=== PATIENT | female | born 1955 | race Caucasian/White ===

== ENCOUNTER 2016-07-15 10:59 | Outpatient (CLI) | payer OTHER ==
[2016-07-15 11:51] LABS: Hemoglobin 14.9 g/dL (12.0-16.0); Mean Corpuscular HGB CONC 33.9 g/dL (32.0-36.0); Mean Corpuscular Volume 91.7 fl (81.0-99.0); Mean Platelet Volume 7.3 fL (7.4-10.4); Platelet Count 245 thou/uL (130-400); RBC Distribution Width 12.5 % (11.5-14.5); Red Blood Cell (RBC) Count 4.81 mill/uL (4.20-5.40)
[2016-07-15 15:03] LABS: ALT (SGPT) 20 U/L (8-55); AST (SGOT) 19 U/L (5-34); Albumin 4.6 g/dL (3.4-4.8); Alkaline Phosphatase 51 U/L (40-150); Anion Gap 17 mmol/L (10-20); BUN (Urea Nitrogen) 14 mg/dL (9.8-20.1); Bilirubin, Total 0.6 mg/dL (0.2-1.2); Calc. Creatinine Clearance 0 mL/min (70-130); Calcium 9.2 mg/dL (7.8-10.44); Carbon Dioxide 21 mmol/L (23-31); Cardiac Risk 8.2 (Less than 4.5); Chloride 105 mmol/L (98-107); Cholesterol 368 mg/dl (< 200 Desired); Estimated GFR-MDRD 47; Globulin 2.5 g/dL (2.4-3.5); Glucose 113 mg/dL (80-115); HDL Cholesterol 45 mg/dL (>60 Neg Risk); LDL Cholesterol, Calculated 271 mg/dL; Potassium 3.9 mmol/L (3.5-5.1); Protein, Total 7.1 g/dL (6.0-8.3); Sodium 139 mmol/L (136-145); Triglycerides 258 mg/dL (Less than 150)
[2016-07-15 16:50] LABS: Thyroid Stimulating Hormone 132.2044 uIU/mL (0.35-4.94)
[2016-07-15 18:11] LABS: Folate (Folic Acid) 12.1 ng/mL (7.0-31.4)
[2016-07-15 18:59] LABS: T4 Less than 2.0 ug/dL (4.87-11.72)
== END 2016-07-15 11:00 | disposition home or self-care (01) ==
LOC: BURLAB 10:59
PROVIDERS: ATTEND Family Medicine
DX: E03.9 Hypothyroidism, unspecified (principal); E78.5 Hyperlipidemia, unspecified; R63.5 Abnormal weight gain; Z79.899 Other long term (current) drug therapy
CPT/HCPCS: 36415; 80053; 80061; 82607; 82746; 84436; 84443; 85027